=== PATIENT | male | born 1945 ===

== ENCOUNTER 2022-12-17 02:46 | Outpatient (CLI) | payer MEDICARE, SELFPAY ==
[2022-12-17 09:37] LABS: Abs Immature Grans 0.02 10^3/uL (0.0-0.06); Absolute Basophil Count 0.03 10^3/uL (0.0-0.2); Absolute Eosinophil Count 0.15 10^3/uL (0.0-0.7); Absolute Lymphocyte Count 1.32 10^3/uL (1.2-3.4); Absolute Monocyte Count 0.42 10^3/uL (0.1-0.8); Absolute Neutrophil Count 5.25 10^3/uL (1.2-6.7); Basophils % 0.4; Eosinophils % 2.1; HCT 45.5 % (40.0-50.0); HGB 15.3 g/dL (13.5-17.5); Immature Grans % 0.3; Lymphocytes % 18.4; MCH 32.8 pg (27.0-33.0); MCHC 33.6 % (32.0-36.0); MCV 98 fL (80-95); MPV 9.8 fL (8.0-11.0); Monocytes % 5.8; Platelet Count 138 10^3/uL (130-400); RBC 4.66 10^6/uL (4.36-5.78); RDW 12.4 % (11.8-14.1); RDW-SD 44.6 fL; WBC 7.19 10^3/uL (4.4-10.8)
[2022-12-17 09:53] LABS: ALT 18 U/L (16-63); AST 11 U/L (15-37); Albumin 3.7 g/dL (3.4-5.0); Alkaline Phosphatase 97 U/L (46-116); BUN 13 mg/dL (7-18); Bilirubin, Total 0.4 mg/dL (0.2-1.0); CREATININE 0.7 mg/dL (0.70-1.30); Calcium 8.9 mg/dL (8.5-10.1); Chloride 102 mmol/L (98-107); Glucose 231 mg/dL (74-106); Potassium 3.8 mmol/L (3.5-5.1); Sodium 139 mmol/L (136-145); Total Protein 6.8 g/dL (6.4-8.2)
== END 2022-12-17 02:47 | disposition home or self-care (01) ==
LOC: LBO 02:48
PROVIDERS: Visit Provider Internal Medicine
DX: C67.9 Malignant neoplasm of bladder, unspecified (principal)
CPT/HCPCS: 36415; 80053; 85025

== ENCOUNTER 2023-01-24 00:36 | Outpatient (RCR) | payer MEDICARE, SELFPAY ==
[2023-01-14] MEDS: Normal Saline Flush 10 ML SYR IVP (10:03)
[2023-01-14 10:18] LABS: Abs Immature Grans 0.02 10^3/uL (0.0-0.06); Absolute Basophil Count 0.03 10^3/uL (0.0-0.2); Absolute Eosinophil Count 0.16 10^3/uL (0.0-0.7); Absolute Monocyte Count 0.73 10^3/uL (0.1-0.8); Absolute Neutrophil Count 7.12 10^3/uL (1.2-6.7); Basophils % 0.3; Eosinophils % 1.7; HCT 44.6 % (40.0-50.0); HGB 15.2 g/dL (13.5-17.5); Immature Grans % 0.2; Lymphocytes % 13.9; MCH 33.2 pg (27.0-33.0); MCHC 34.1 % (32.0-36.0); MCV 97 fL (80-95); MPV 10.1 fL (8.0-11.0); Monocytes % 7.8; Neutrophils % 76.1; Platelet Count 142 10^3/uL (130-400); RBC 4.58 10^6/uL (4.36-5.78); RDW 12.4 % (11.8-14.1); RDW-SD 44.3 fL; WBC 9.36 10^3/uL (4.4-10.8)
[2023-01-14 10:34] LABS: ALT 20 U/L (16-63); AST 10 U/L (15-37); Albumin 3.4 g/dL (3.4-5.0); Anion Gap 4.3 mmol/L (3-11); BUN 14 mg/dL (7-18); CO2 31.7 mmol/L (21.0-32.0); CREATININE 0.6 mg/dL (0.70-1.30); Calcium 8.7 mg/dL (8.5-10.1); Chloride 106 mmol/L (98-107); Estimated GFR 99.42 (mL/min/1.73m2); Glucose 113 mg/dL (74-106); Potassium 4.7 mmol/L (3.5-5.1); Sodium 142 mmol/L (136-145)
[2023-01-14 10:47] LABS: Alkaline Phosphatase 95 U/L (46-116); Bilirubin, Total 0.4 mg/dL (0.2-1.0); Total Protein 6.4 g/dL (6.4-8.2)
[2023-01-17] MEDS: Normal Saline Flush 10 ML SYR IVP (12:39)
[2023-01-17 12:49] LABS: Abs Immature Grans 0.02 10^3/uL (0.0-0.06); Absolute Basophil Count 0.02 10^3/uL (0.0-0.2); Absolute Eosinophil Count 0.18 10^3/uL (0.0-0.7); Absolute Lymphocyte Count 1.43 10^3/uL (1.2-3.4); Absolute Monocyte Count 0.27 10^3/uL (0.1-0.8); Absolute Neutrophil Count 6.38 10^3/uL (1.2-6.7); Basophils % 0.2; Eosinophils % 2.2; HCT 43.2 % (40.0-50.0); HGB 14.8 g/dL (13.5-17.5); Immature Grans % 0.2; Lymphocytes % 17.2; MCHC 34.3 % (32.0-36.0); MCV 96 fL (80-95); MPV 9.8 fL (8.0-11.0); Monocytes % 3.3; Neutrophils % 76.9; Platelet Count 133 10^3/uL (130-400); RBC 4.49 10^6/uL (4.36-5.78); RDW 12.1 % (11.8-14.1); RDW-SD 43.2 fL
[2023-01-17 13:07] LABS: ALT 21 U/L (16-63); AST 10 U/L (15-37); Albumin 3.4 g/dL (3.4-5.0); Alkaline Phosphatase 99 U/L (46-116); Anion Gap 4.5 mmol/L (3-11); BUN 14 mg/dL (7-18); Bilirubin, Total 0.6 mg/dL (0.2-1.0); CO2 32.5 mmol/L (21.0-32.0); CREATININE 0.5 mg/dL (0.70-1.30); Chloride 104 mmol/L (98-107); Estimated GFR 105.05 (mL/min/1.73m2); Glucose 114 mg/dL (74-106); Potassium 4.4 mmol/L (3.5-5.1); Sodium 141 mmol/L (136-145); Total Protein 6.4 g/dL (6.4-8.2)
[2023-01-21] MEDS: Normal Saline Flush 10 ML SYR IVP (12:39)
[2023-01-21 13:05] LABS: Abs Immature Grans 0.02 10^3/uL (0.0-0.06); Absolute Basophil Count 0.02 10^3/uL (0.0-0.2); Absolute Eosinophil Count 0.14 10^3/uL (0.0-0.7); Absolute Lymphocyte Count 1.06 10^3/uL (1.2-3.4); Absolute Monocyte Count 0.12 10^3/uL (0.1-0.8); Basophils % 0.4; Eosinophils % 2.7; HCT 41.5 % (40.0-50.0); HGB 14.1 g/dL (13.5-17.5); Immature Grans % 0.4; Lymphocytes % 20.2; MCH 33.1 pg (27.0-33.0); MCV 97 fL (80-95); Monocytes % 2.3; Platelet Count 125 10^3/uL (130-400); RBC 4.26 10^6/uL (4.36-5.78); RDW-SD 43.2 fL; WBC 5.26 10^3/uL (4.4-10.8)
[2023-01-21 13:29] LABS: ALT 20 U/L (16-63); AST 10 U/L (15-37); Albumin 3.2 g/dL (3.4-5.0); Alkaline Phosphatase 87 U/L (46-116); Anion Gap 8.1 mmol/L (3-11); BUN 14 mg/dL (7-18); Bilirubin, Total 0.5 mg/dL (0.2-1.0); CO2 30.9 mmol/L (21.0-32.0); CREATININE 0.6 mg/dL (0.70-1.30); Calcium 8.3 mg/dL (8.5-10.1); Chloride 101 mmol/L (98-107); Estimated GFR 99.42 (mL/min/1.73m2); Glucose 124 mg/dL (74-106); Potassium 4.2 mmol/L (3.5-5.1); Sodium 140 mmol/L (136-145); Total Protein 6.2 g/dL (6.4-8.2)
[2023-01-24] MEDS: Normal Saline Flush 10 ML SYR IVP (12:37)
[2023-01-24 12:48] LABS: Abs Immature Grans 0.02 10^3/uL (0.0-0.06); Absolute Basophil Count 0.01 10^3/uL (0.0-0.2); Absolute Eosinophil Count 0.13 10^3/uL (0.0-0.7); Absolute Lymphocyte Count 1.05 10^3/uL (1.2-3.4); Absolute Monocyte Count 0.13 10^3/uL (0.1-0.8); Absolute Neutrophil Count 3.49 10^3/uL (1.2-6.7); Basophils % 0.2; Eosinophils % 2.7; HCT 39.4 % (40.0-50.0); HGB 13.6 g/dL (13.5-17.5); Immature Grans % 0.4; Lymphocytes % 21.7; MCH 33.4 pg (27.0-33.0); MCHC 34.5 % (32.0-36.0); MCV 97 fL (80-95); MPV 9.5 fL (8.0-11.0); Monocytes % 2.7; Neutrophils % 72.3; RBC 4.07 10^6/uL (4.36-5.78); RDW 11.9 % (11.8-14.1); RDW-SD 41.9 fL; WBC 4.83 10^3/uL (4.4-10.8)
[2023-01-24 13:09] LABS: ALT 33 U/L (16-63); AST 21 U/L (15-37); Albumin 3.2 g/dL (3.4-5.0); Alkaline Phosphatase 92 U/L (46-116); BUN 13 mg/dL (7-18); Bilirubin, Total 0.5 mg/dL (0.2-1.0); CREATININE 0.5 mg/dL (0.70-1.30); Calcium 8.4 mg/dL (8.5-10.1); Chloride 105 mmol/L (98-107); Estimated GFR 105.05 (mL/min/1.73m2); Glucose 123 mg/dL (74-106); Potassium 4.3 mmol/L (3.5-5.1); Sodium 140 mmol/L (136-145); Total Protein 6.3 g/dL (6.4-8.2)
[2023-01-24 13:33] LABS: Diff Comment Diff Reviewed; RBC Morphology Normal
[2023-01-24 13:34] LABS: Platelet Count 92 10^3/uL (130-400)
== END 2023-01-24 23:59 | disposition home or self-care (01) ==
LOC: INF 00:36
PROVIDERS: Visit Provider Internal Medicine
DX: C67.9 Malignant neoplasm of bladder, unspecified (principal); Z45.2 Encounter for adjustment and management of vascular access device
CPT/HCPCS: 36591; 80053; 85025

== ENCOUNTER 2023-02-14 01:08 | Outpatient (RCR) | payer MEDICARE, SELFPAY ==
[2023-01-27] MEDS: Normal Saline Flush 10 ML SYR IVP (13:12)
[2023-01-27 13:22] LABS: Abs Immature Grans 0.02 10^3/uL (0.0-0.06); Absolute Basophil Count 0.01 10^3/uL (0.0-0.2); Absolute Eosinophil Count 0.13 10^3/uL (0.0-0.7); Absolute Monocyte Count 0.44 10^3/uL (0.1-0.8); Absolute Neutrophil Count 3.31 10^3/uL (1.2-6.7); Basophils % 0.2; Eosinophils % 2.7; HCT 42.4 % (40.0-50.0); HGB 14.5 g/dL (13.5-17.5); Immature Grans % 0.4; Lymphocytes % 18.7; MCHC 34.2 % (32.0-36.0); MCV 97 fL (80-95); MPV 9.2 fL (8.0-11.0); Monocytes % 9.1; Neutrophils % 68.9; RBC 4.39 10^6/uL (4.36-5.78); RDW 12.4 % (11.8-14.1); RDW-SD 42.2 fL; WBC 4.81 10^3/uL (4.4-10.8)
[2023-01-27 14:07] LABS: ALT 29 U/L (16-63); AST 16 U/L (15-37); Albumin 3.6 g/dL (3.4-5.0); Alkaline Phosphatase 97 U/L (46-116); Anion Gap 4.6 mmol/L (3-11); BUN 15 mg/dL (7-18); Bilirubin, Total 0.5 mg/dL (0.2-1.0); CO2 31.4 mmol/L (21.0-32.0); CREATININE 0.6 mg/dL (0.70-1.30); Calcium 9.5 mg/dL (8.5-10.1); Chloride 103 mmol/L (98-107); Estimated GFR 99.42 (mL/min/1.73m2); Glucose 104 mg/dL (74-106); Potassium 4.4 mmol/L (3.5-5.1); Sodium 139 mmol/L (136-145); Total Protein 6.8 g/dL (6.4-8.2)
[2023-01-27 14:29] LABS: Diff Comment PLT Morph Reviewed; Platelet Count 89 10^3/uL (130-400)
[2023-01-30] MEDS: Normal Saline Flush 10 ML SYR IVP (12:52)
[2023-01-30 13:28] LABS: Abs Immature Grans 0.02 10^3/uL (0.0-0.06); Absolute Basophil Count 0.01 10^3/uL (0.0-0.2); Absolute Eosinophil Count 0.24 10^3/uL (0.0-0.7); Absolute Lymphocyte Count 1.13 10^3/uL (1.2-3.4); Absolute Monocyte Count 0.53 10^3/uL (0.1-0.8); Basophils % 0.2; Eosinophils % 4.6; HCT 42.7 % (40.0-50.0); HGB 14.5 g/dL (13.5-17.5); Immature Grans % 0.4; Lymphocytes % 21.6; MCH 32.8 pg (27.0-33.0); MCV 97 fL (80-95); MPV 9.5 fL (8.0-11.0); Monocytes % 10.1; Neutrophils % 63.1; Platelet Count 124 10^3/uL (130-400); RBC 4.42 10^6/uL (4.36-5.78); RDW-SD 43.7 fL; WBC 5.23 10^3/uL (4.4-10.8)
[2023-01-30 13:42] LABS: ALT 27 U/L (16-63); AST 17 U/L (15-37); Albumin 3.7 g/dL (3.4-5.0); Alkaline Phosphatase 93 U/L (46-116); Anion Gap 4.4 mmol/L (3-11); BUN 18 mg/dL (7-18); Bilirubin, Total 0.5 mg/dL (0.2-1.0); CO2 32.6 mmol/L (21.0-32.0); CREATININE 0.5 mg/dL (0.70-1.30); Calcium 8.6 mg/dL (8.5-10.1); Chloride 104 mmol/L (98-107); Estimated GFR 105.05 (mL/min/1.73m2); Glucose 96 mg/dL (74-106); Potassium 4.5 mmol/L (3.5-5.1); Sodium 141 mmol/L (136-145); Total Protein 6.8 g/dL (6.4-8.2)
[2023-02-04] MEDS: Normal Saline Flush 10 ML SYR IVP (09:05)
[2023-02-04 09:36] LABS: Abs Immature Grans 0.03 10^3/uL (0.0-0.06); Absolute Basophil Count 0.02 10^3/uL (0.0-0.2); Absolute Eosinophil Count 0.17 10^3/uL (0.0-0.7); Absolute Lymphocyte Count 0.85 10^3/uL (1.2-3.4); Absolute Monocyte Count 0.39 10^3/uL (0.1-0.8); Absolute Neutrophil Count 4.43 10^3/uL (1.2-6.7); Basophils % 0.3; Eosinophils % 2.9; HCT 40.8 % (40.0-50.0); Immature Grans % 0.5; Lymphocytes % 14.4; MCH 33.8 pg (27.0-33.0); MCHC 34.3 % (32.0-36.0); MCV 99 fL (80-95); MPV 9.3 fL (8.0-11.0); Monocytes % 6.6; Neutrophils % 75.3; Platelet Count 221 10^3/uL (130-400); RBC 4.14 10^6/uL (4.36-5.78); RDW 13.4 % (11.8-14.1); RDW-SD 46.9 fL; WBC 5.89 10^3/uL (4.4-10.8)
[2023-02-04 09:48] LABS: ALT 21 U/L (16-63); AST 11 U/L (15-37); Albumin 3.4 g/dL (3.4-5.0); Alkaline Phosphatase 99 U/L (46-116); Anion Gap 6.1 mmol/L (3-11); BUN 15 mg/dL (7-18); Bilirubin, Total 0.4 mg/dL (0.2-1.0); CO2 30.9 mmol/L (21.0-32.0); CREATININE 0.6 mg/dL (0.70-1.30); Calcium 8.5 mg/dL (8.5-10.1); Chloride 106 mmol/L (98-107); Estimated GFR 99.42 (mL/min/1.73m2); Glucose 116 mg/dL (74-106); Potassium 4.5 mmol/L (3.5-5.1); Sodium 143 mmol/L (136-145); Total Protein 6.2 g/dL (6.4-8.2)
[2023-02-07] MEDS: Normal Saline Flush 10 ML SYR IVP (13:06)
[2023-02-07 13:21] LABS: Abs Immature Grans 0.02 10^3/uL (0.0-0.06); Absolute Basophil Count 0.02 10^3/uL (0.0-0.2); Absolute Eosinophil Count 0.25 10^3/uL (0.0-0.7); Absolute Lymphocyte Count 0.91 10^3/uL (1.2-3.4); Absolute Monocyte Count 0.26 10^3/uL (0.1-0.8); Absolute Neutrophil Count 3.54 10^3/uL (1.2-6.7); Basophils % 0.4; HCT 40.7 % (40.0-50.0); HGB 13.8 g/dL (13.5-17.5); Immature Grans % 0.4; Lymphocytes % 18.2; MCHC 33.9 % (32.0-36.0); MCV 97 fL (80-95); MPV 9.3 fL (8.0-11.0); Monocytes % 5.2; Neutrophils % 70.8; Platelet Count 198 10^3/uL (130-400); RBC 4.18 10^6/uL (4.36-5.78); RDW 13.3 % (11.8-14.1); RDW-SD 45.5 fL
[2023-02-07 13:39] LABS: ALT 26 U/L (16-63); AST 13 U/L (15-37); Albumin 3.5 g/dL (3.4-5.0); Alkaline Phosphatase 99 U/L (46-116); Anion Gap 5.3 mmol/L (3-11); BUN 12 mg/dL (7-18); Bilirubin, Total 0.5 mg/dL (0.2-1.0); CO2 31.7 mmol/L (21.0-32.0); CREATININE 0.6 mg/dL (0.70-1.30); Calcium 8.9 mg/dL (8.5-10.1); Chloride 102 mmol/L (98-107); Estimated GFR 99.42 (mL/min/1.73m2); Glucose 106 mg/dL (74-106); Potassium 4.2 mmol/L (3.5-5.1); Sodium 139 mmol/L (136-145); Total Protein 6.4 g/dL (6.4-8.2)
[2023-02-11] MEDS: Normal Saline Flush 10 ML SYR IVP (12:33)
[2023-02-11 12:43] LABS: Abs Immature Grans 0.02 10^3/uL (0.0-0.06); Absolute Basophil Count 0.02 10^3/uL (0.0-0.2); Absolute Eosinophil Count 0.17 10^3/uL (0.0-0.7); Absolute Lymphocyte Count 0.79 10^3/uL (1.2-3.4); Absolute Neutrophil Count 3.56 10^3/uL (1.2-6.7); Basophils % 0.4; Eosinophils % 3.6; HCT 40.1 % (40.0-50.0); HGB 13.7 g/dL (13.5-17.5); Immature Grans % 0.4; Lymphocytes % 16.6; MCH 33.5 pg (27.0-33.0); MCHC 34.2 % (32.0-36.0); MCV 98 fL (80-95); MPV 9.4 fL (8.0-11.0); Monocytes % 4.2; Neutrophils % 74.8; Platelet Count 149 10^3/uL (130-400); RBC 4.09 10^6/uL (4.36-5.78); RDW 13.4 % (11.8-14.1); RDW-SD 46.4 fL; WBC 4.76 10^3/uL (4.4-10.8)
[2023-02-11 13:02] LABS: ALT 32 U/L (16-63); AST 16 U/L (15-37); Albumin 3.5 g/dL (3.4-5.0); Alkaline Phosphatase 97 U/L (46-116); Anion Gap 3.2 mmol/L (3-11); BUN 16 mg/dL (7-18); Bilirubin, Total 0.6 mg/dL (0.2-1.0); CO2 31.8 mmol/L (21.0-32.0); CREATININE 0.5 mg/dL (0.70-1.30); Calcium 8.4 mg/dL (8.5-10.1); Chloride 106 mmol/L (98-107); Estimated GFR 105.05 (mL/min/1.73m2); Glucose 106 mg/dL (74-106); Potassium 4.5 mmol/L (3.5-5.1); Sodium 141 mmol/L (136-145); Total Protein 6.4 g/dL (6.4-8.2)
== END 2023-02-24 23:59 | disposition home or self-care (01) ==
LOC: INF 01:08
PROVIDERS: Visit Provider Internal Medicine
DX: C67.9 Malignant neoplasm of bladder, unspecified (principal); Z45.2 Encounter for adjustment and management of vascular access device
CPT/HCPCS: 36591; 80053; 85025

== ENCOUNTER 2023-04-23 10:33 | Outpatient (REF) | payer MEDICARE, SELFPAY | END 2023-04-23 10:34 | disposition home or self-care (01) | LOC: LBN 10:33 | PROVIDERS: Visit Provider Urology | DX: R39.89 Other symptoms and signs involving the genitourinary system (principal); C67.4 Malignant neoplasm of posterior wall of bladder | CPT/HCPCS: 87086 ==

== ENCOUNTER 2023-05-23 10:17 | Outpatient (RCR) | payer MEDICARE, SELFPAY ==
[2023-05-23 10:45] LABS: Abs Immature Grans 0.03 10^3/uL (0.0-0.06); Absolute Basophil Count 0.03 10^3/uL (0.0-0.2); Absolute Eosinophil Count 0.16 10^3/uL (0.0-0.7); Absolute Lymphocyte Count 0.85 10^3/uL (1.2-3.4); Absolute Monocyte Count 0.51 10^3/uL (0.1-0.8); Absolute Neutrophil Count 5.97 10^3/uL (1.2-6.7); Basophils % 0.4; Eosinophils % 2.1; HCT 44.4 % (40.0-50.0); HGB 14.9 g/dL (13.5-17.5); Immature Grans % 0.4; Lymphocytes % 11.3; MCH 32.9 pg (27.0-33.0); MCHC 33.6 % (32.0-36.0); MCV 98 fL (80-95); MPV 9.8 fL (8.0-11.0); Monocytes % 6.8; Platelet Count 140 10^3/uL (130-400); RBC 4.53 10^6/uL (4.36-5.78); RDW 12.4 % (11.8-14.1); WBC 7.55 10^3/uL (4.4-10.8)
[2023-05-23 11:08] LABS: ALT 29 U/L (16-63); AST 10 U/L (15-37); Albumin 3.5 g/dL (3.4-5.0); Alkaline Phosphatase 117 U/L (46-116); Anion Gap 8.2 mmol/L (3-11); BUN 15 mg/dL (7-18); Bilirubin, Total 0.3 mg/dL (0.2-1.0); CO2 28.8 mmol/L (21.0-32.0); CREATININE 0.7 mg/dL (0.70-1.30); Calcium 8.8 mg/dL (8.5-10.1); Chloride 103 mmol/L (98-107); Glucose 228 mg/dL (74-106); Potassium 3.9 mmol/L (3.5-5.1); Sodium 140 mmol/L (136-145); Total Protein 6.4 g/dL (6.4-8.2)
== END 2023-05-27 23:59 | disposition home or self-care (01) ==
LOC: INF 10:17
PROVIDERS: Visit Provider Internal Medicine
DX: C67.9 Malignant neoplasm of bladder, unspecified (principal)
CPT/HCPCS: 36415; 80053; 85025